=== PATIENT | female | born 1945 | race Caucasian/White ===

== ENCOUNTER → 2018-08-15 | Emergency (ER) | payer OTHER ==
[~2018-08-15] VITALS: Ht 152.4 cm; Wt 49.9 kg
[~2018-08-15] MED LIST: AVAPRO75 MG; OSEL75CA PO
== END | disposition left against medical advice (07) ==
LOC: ER 13:09
DX: Z53.20 Procedure and treatment not carried out because of patient's decision for unspecified reasons (principal)